=== PATIENT | female | born 1950 | race Caucasian/White ===

== ENCOUNTER → 2023-10-19 08:02 | Outpatient (REF) | payer MEDICARE, OTHER, SELFPAY | LOC: RAD 08:02 | PROVIDERS: ATTENDING PHYSICIAN Family Medicine | DX: Z78.0 Asymptomatic menopausal state (principal) | CPT/HCPCS: 77080 ==

== ENCOUNTER → 2023-11-14 06:35 | Outpatient (REF) | payer MEDICARE, OTHER, SELFPAY | LOC: RAD 06:35 | PROVIDERS: ATTENDING PHYSICIAN Family Medicine | DX: Z87.891 Personal history of nicotine dependence (principal) | CPT/HCPCS: 71271 ==

== ENCOUNTER → 2024-09-17 17:43 | Outpatient (REF) | payer MEDICARE, OTHER, SELFPAY | LOC: WDC 17:43 | PROVIDERS: ATTENDING PHYSICIAN Family Medicine | DX: Z12.31 Encounter for screening mammogram for malignant neoplasm of breast (principal) | CPT/HCPCS: 77063; 77067 ==

== ENCOUNTER 2024-10-08 09:50 | Emergency (ER) | payer MEDICARE, OTHER, SELFPAY ==
[2024-10-08 10:02] VITALS: BP 119/60
--- NOTE | 2024-10-08 13:09 | ED.GENMED ---
History of Present Illness
General
Chief Complaint: Back Pain
Source: patient
Time Seen by Provider: 10/08/24 11:13
History of Present Illness
History of Present Illness:
74-year-old female presenting to the emergency department for evaluation of lower back pain that has been ongoing for about a month but acutely worse since Tuesday stating she was sitting on her couch with her feet up on the ottoman and when she
went to go get up she felt her back lock up and unable to move. Since that time pain has remained about the same although she does note a little bit more range of motion but states the pain is a constant dull ache, worse with any movement,
nonradiating and minimally improved with any NSAIDs that she was take for the pain. Patient denies any fevers or infectious symptoms, denies any trauma, no focal weakness or numbness or any other red flag symptoms for back pain. She did take some
Advil prior to arrival today.
Past History
Past History
ED Past Medical History: None
ED Past Surgical History: Gynecological and Tonsilectomy
Social History
Tobacco: Non-smoker
Alcohol: None
Drug: None
Personal:
Living: with family
Review of Systems
Review of Systems
All Other Systems: ROS reviewed and negative except as documented in HPI and ROS
Phy Exam
Physical Exam
Physical Exam:
GENERAL: Alert , in no apparent distress
EYE: clear conjunctiva b/l
NECK: Supple
ENT: o/p clr, mmm.
BACK: limitedl range of motion especially with forward flexion, no focal tenderness, no midline bony tenderness, no rashes
NEUROLOGICAL: Alert and oriented, no focal neuro deficits. Patellar deep tendon reflexes intact and equal bilaterally, sensation grossly intact and equal to light touch bilateral lower extremities
SKIN: Warm and dry, skin intact.
MUSCULOSKELETAL: No edema, well perfused. EHL intact bilaterally
PSYCH: Normal and appropriate interaction.
Scores
Heart Failure Risk
Heart Failure Risk Score: Not Applicable
Heart Score for Chest Pain Patients
STEMI patient?: Not applicable
Withdrawal Assessment of Alcohol
Withdrawal Assessment Completed?: Not applicable
Course
Orders/Labs/Results
Orders:
Orders
10/08/24 11:36
CR Lumbar Spine Comp Min 4 Vw* Urgent
Comment:
Reason For Exam: low back pain
Vital Signs
Initial and Last Documented VS:
Initial Vital Signs
Temp Pulse Resp BP Pulse Ox
97.9 F 78 18 119/60 95
10/08/24 10:02 10/08/24 10:02 10/08/24 10:02 10/08/24 10:02 10/08/24 10:02
Last Documented Vital Signs
Temp Pulse Resp BP Pulse Ox
97.9 F 78 18 119/60 95
10/08/24 10:02 10/08/24 10:02 10/08/24 10:02 10/08/24 10:02 10/08/24 10:02
MDM/Problems Addressed
Differential Diagnosis Includes:
Spinal stenosis, disc herniation, nerve impingement, lumbar strain, no symptoms to suggest infectious etiology nor neurogenic claudication
MDM/Problems Addressed:
74-year-old female presenting to the emergency department with 1 month of some lower back pain, no specific injury or etiologies. Pain seems to be more so with movement. Patient requesting x-ray which I do think is reasonable given her age.
Continue anti-inflammatories, will add on a muscle relaxant and steroid taper to regimen. Patient already arranged for follow-up with her orthopedic doctor for this coming Tuesday.
*Radiology
Radiology exam reviewed: preliminary read by ED provider (Degenerative changes, no fracture)
*Pulse Oximetry
Patient hypoxic: no
*Critical Care Note
Total Time (30-74mins, 75-104mins- exclusive of procedures): Not Applicable
Patient Management
Escalation/DeEscalation of care consider admission/obs:
Patient's imaging shows degenerative changes but otherwise no acute abnormalities. She is otherwise stable for discharge home and aware of return precautions.
ED Attending Note
-
Portions of this chart may have been created with voice recognition software.� Occasional wrong word or��sound alike� substitutions may have occurred due to the inherent limitations of voice recognition software.
Discharge Plan
Departure
Patient Disposition: Home (Routine Discharge)
Date of Disposition: 10/08/24
Time of Disposition: 13:09
Patient with high blood pressure during this ER visit?: No
Discharge Problem:
Low back pain
Instructions: Low Back Pain (DC)
Prescriptions:
New
methylprednisolone [Medrol (Todd)] 4 mg tablets,dose pack
4 mg PO DIRECTED Qty: 21 0RF
baclofen 10 mg tablet
10 mg PO BID PRN (Reason: muscle spasm) Qty: 8 0RF
Referrals:
Jesse Kyle MD [Family Provider] -
Interventions
Interventions:
*Risk Screen - Suicide Last Done: 10/08/24 13:25
*General Assessment Last Done: 10/08/24 13:25
*Neglect/Abuse Screening Last Done: 10/08/24 13:25
ED- Fall Risk Assessment Last Done: 10/08/24 13:25
*ED COVID-19 Vaccine History Last Done: 10/08/24 13:25
*Nursing Disposition Last Done: 10/08/24 13:27
ED-Musculoskeletal Assessment Last Done: 10/08/24 13:25
Discharge Date and Time
Discharge Date/Time: 10/08/24 13:27
Print Language: TAIWANESE
== END 2024-10-08 13:27 | disposition home or self-care (01) ==
LOC: EMR 09:50
PROVIDERS: EMERGENCY PHYSICIAN Emergency Medicine; FAMILY PHYSICIAN Family Medicine
DX: M54.50 Low back pain, unspecified (principal)
CPT/HCPCS: 99283; 72110

== ENCOUNTER → 2024-11-05 06:19 | Outpatient (REF) | payer MEDICARE, OTHER, SELFPAY | LOC: RAD 06:19 | PROVIDERS: ATTENDING PHYSICIAN Internal Medicine Gastroenterology; FAMILY PHYSICIAN Family Medicine | DX: R19.8 Other specified symptoms and signs involving the digestive system and abdomen (principal) | CPT/HCPCS: 76770 ==

== ENCOUNTER → 2024-11-14 07:49 | Outpatient (REF) | payer MEDICARE, OTHER, SELFPAY | LOC: PAVMRI 07:49 | PROVIDERS: ATTENDING PHYSICIAN Physical Medicine & Rehabilitation; FAMILY PHYSICIAN Family Medicine | DX: M54.16 Radiculopathy, lumbar region (principal) | CPT/HCPCS: 72148 ==

== ENCOUNTER → 2024-11-15 07:27 | Outpatient (REF) | payer MEDICARE, OTHER, SELFPAY | LOC: HWRAD 07:27 | PROVIDERS: ATTENDING PHYSICIAN Family Medicine | DX: Z87.891 Personal history of nicotine dependence (principal) | CPT/HCPCS: 71271 ==

== ENCOUNTER 2024-11-27 06:17 | Day surgery (SDC) | payer MEDICARE, OTHER, SELFPAY | END 2024-11-27 10:45 | disposition home or self-care (01) | LOC: GI 06:17 | PROVIDERS: ATTENDING PHYSICIAN Internal Medicine Gastroenterology; FAMILY PHYSICIAN Family Medicine | DX: R13.10 Dysphagia, unspecified (principal); R12 Heartburn; K44.9 Diaphragmatic hernia without obstruction or gangrene; K21.00 Gastro-esophageal reflux disease with esophagitis, without bleeding | CPT/HCPCS: 43235 ==

== ENCOUNTER → 2025-09-18 11:46 | Outpatient (REF) | payer MEDICARE, OTHER, SELFPAY | LOC: WDC 11:46 | PROVIDERS: ATTENDING PHYSICIAN Family Medicine | DX: Z12.31 Encounter for screening mammogram for malignant neoplasm of breast (principal) | CPT/HCPCS: 77063; 77067 ==